=== PATIENT | male | born 1945 | race Caucasian/White ===

== ENCOUNTER 2020-03-11 08:47 | Day surgery (SDC) | payer MEDICARE ==
[2020-03-11] MEDS ORDERED: Propofol 200 MG/20 ML SDV IV ONE (08:48)
[2020-03-11] MEDS ORDERED: hydrALAZINE 20 MG/ML SDV IV ONE (08:48)
[2020-03-11] MEDS ORDERED: Midazolam 1 MG/ML 2 ML SDV IV ONE (08:48)
[2020-03-11] MEDS ORDERED: Sodium Chloride 0.9% 10 ML Syringe FLUSH PRN (09:00)
[2020-03-11] MEDS: Lactated Ringers 1,000 ML IV SCH (09:30)
--- NOTE | 2020-03-11 11:37 | PCM.OPNOTE ---
- General Post-Op/Procedure Note Date of Surgery/Procedure: 03/11/20 Operative Procedure(s): c scope with hot loop and cold forcep biopsy Findings: transverse colon x3 descending colon x2 sigmoid colon x5 rectal polyp x12 diverticulosis Pre Op Diagnosis: + Cologuard Post-Op Diagnosis: transverse colon x3. descending colon x2. sigmoid colon x5. rectal polyp x12. diverticulosis Anesthesia Technique: MAC Primary Surgeon: Tacos Quintero Anesthesia Provider: Negra Koenig Pathology: transverse colon x3 descending colon x2 sigmoid colon x5 rectal polyp x12 Complications: None Condition: Good Free Text/Narrative:: see dictation #[id number]
[2020-03-11 12:55] VITALS: BP 156/72; PULSE 54
--- NOTE | 2020-03-11 17:10 | OR ---
DATE OF OPERATION: 03/11/2020 SURGEON: Tacos Quintero MD PROCEDURE PERFORMED: Colonoscopy with cold forceps and hot forceps biopsy. PREOPERATIVE DIAGNOSIS: Positive Cologuard. POSTOPERATIVE DIAGNOSIS: Transverse colon polyp x3, descending colon polyps x2, sigmoid colon polyps x5, and rectal polyps x12. INDICATIONS FOR PROCEDURE: This is a 74-year-old white male who recently had a Cologuard test performed with the results coming back as being positive. He was referred for colonoscopy urgently. It was supposed to be done last week; however, he had continued to take aspirin, so we canceled it and he presents now for followup colonoscopy. DESCRIPTION OF PROCEDURE: After an excellent IV sedation was administered, digital rectal exam was performed. No marked abnormality was noted. Flexible colonoscope was inserted and advanced to the cecum. The prep was adequate. There were some areas of liquid stool with vegetable particulate matter for the most part. We were able to irrigate and get an adequate view of the mucosa. The following findings were noted: Ascending colon, unremarkable, except for some scattered diverticula. Transverse colon, 3 colonic polyps. Given their size, they were biopsied with cold forceps biopsy and submitted in 1 container. Descending colon, 2 polyps; one was biopsied with hot loop and the other was biopsied with cold forceps, submitted in 1 container. Sigmoid colon, 5 polyps, and these were biopsied with a combination of hot loop for 3 of them and cold forceps for 2 of them. The most significant number of polyps were in the rectum, where a grand total of 12 polyps were removed; 8 of them were biopsied with hot loop snare and submitted in 1 container and the remaining 4 were small enough that loop snare biopsy was not adequate and they were biopsied with cold forceps biopsy, again submitted in 1 container. It should be noted that he had scattered diverticulosis from the ascending to the sigmoid colon. The patient tolerated the procedure well, was taken to recovery in good condition. /[id number] /MODL
== END 2020-03-11 12:45 | disposition home or self-care (01) ==
LOC: FB.SDS 08:47
PROVIDERS: ATTEND Surgery
DX: D12.3 Benign neoplasm of transverse colon (principal); D12.4 Benign neoplasm of descending colon; K62.1 Rectal polyp; K57.30 Diverticulosis of large intestine without perforation or abscess without bleeding; I25.10 Atherosclerotic heart disease of native coronary artery without angina pectoris; J44.9 Chronic obstructive pulmonary disease, unspecified; E11.9 Type 2 diabetes mellitus without complications; E66.9 Obesity, unspecified; F17.210 Nicotine dependence, cigarettes, uncomplicated; Z79.899 Other long term (current) drug therapy; Z79.82 Long term (current) use of aspirin; Z79.84 Long term (current) use of oral hypoglycemic drugs; Z98.890 Other specified postprocedural states; Z68.38 Body mass index [BMI] 38.0-38.9, adult
CPT/HCPCS: 00811; 45380; 45385; 82962; 88305; J0360; J2250; J2704; J7120

== ENCOUNTER 2022-07-01 06:49 | Day surgery (SDC) | payer MEDICARE ==
[2022-07-01] MEDS ORDERED: Propofol 200 MG/20 ML SDV IV ONE (06:50)
[2022-07-01] MEDS ORDERED: Sodium Chloride 0.9% 10 ML Syringe FLUSH PRN (07:00)
[2022-07-01] MEDS: Lactated Ringers 1,000 ML IV SCH (08:09)
[2022-07-01] MEDS: Albuterol/Ipratropium 3.0-0.5 MG/3 ML Neb Soln NEB ONE (08:12)
[2022-07-01] MEDS: Simethicone Drops 40 MG/0.6 ML 30 ML Bottle PO ONE (08:26)
[2022-07-01 09:47] VITALS: BP 140/86; PULSE 66
== END 2022-07-01 09:30 | disposition home or self-care (01) ==
LOC: FB.SDS 06:49
PROVIDERS: ATTEND Surgery
DX: Z12.11 Encounter for screening for malignant neoplasm of colon (principal); D12.6 Benign neoplasm of colon, unspecified; K57.30 Diverticulosis of large intestine without perforation or abscess without bleeding; R06.2 Wheezing; I71.40 Abdominal aortic aneurysm, without rupture, unspecified; I25.10 Atherosclerotic heart disease of native coronary artery without angina pectoris; J44.9 Chronic obstructive pulmonary disease, unspecified; E11.9 Type 2 diabetes mellitus without complications; E78.5 Hyperlipidemia, unspecified; I10 Essential (primary) hypertension; F17.210 Nicotine dependence, cigarettes, uncomplicated; R09.89 Other specified symptoms and signs involving the circulatory and respiratory systems; K21.9 Gastro-esophageal reflux disease without esophagitis; Z95.1 Presence of aortocoronary bypass graft; Z86.010 Personal history of colon polyps; Z79.84 Long term (current) use of oral hypoglycemic drugs; Z79.82 Long term (current) use of aspirin; Z79.899 Other long term (current) drug therapy
CPT/HCPCS: 00812; 82947; 88305; 94640; A9270-GY; J2704; J7120; J7620

== ENCOUNTER 2023-12-07 14:50 | Emergency (ER) | payer MEDICARE ==
[2023-12-07 15:32] LABS: BASOPHILS ABSOLUTE AUTO 0.1 x10-3/uL (0.0-0.3); BASOPHILS PERCENT AUTO 1.2 % (0.3-3.8); EOSINOPHILS ABSOLUTE AUTO 0.1 x10-3/uL (0.0-0.6); EOSINOPHILS PERCENT AUTO 1.6 % (0.1-6.8); HEMATOCRIT 41.4 % (38.3-50.1); HEMOGLOBIN 13.3 g/dL (12.9-17.7); LYMPHOCYTES ABSOLUTE AUTO 1.3 x10-3/uL (0.5-4.5); LYMPHOCYTES PERCENT AUTO 18.7 % (15.8-45.3); MEAN CORPUSCULAR HEMOGLOBIN 30.4 pg (27.0-33.3); MEAN CORPUSCULAR HGB CONC 32.1 g/dL (28.7-35.3); MEAN CORPUSCULAR VOLUME 94.7 fL (80.8-98.7); MEAN PLATELET VOLUME 9.4 fL (6.7-11.0); MONOCYTES ABSOLUTE AUTO 0.7 x10-3/uL (0.0-1.2); NEUTROPHILS ABSOLUTE AUTO 4.9 x10-3/uL (1.7-6.9); NEUTROPHILS PERCENT AUTO 68.5 % (40.3-71.8); PLATELET COUNT,PLT 216 x10(3)uL (117-477); RED BLOOD CELL COUNT 4.37 x10(6)uL (3.90-5.90); RED CELL DISTRIBUTION WIDTH 17.5 % (12.4-15.0); WHITE BLOOD CELL COUNT,WBC 7.2 x10-3/uL (3.2-10.1)
[2023-12-07 15:38] LABS: BLOOD UREA NITROGEN,BUN 12 mg/dL (7-18); CALCIUM 9.1 mg/dL (8.6-10.2); CARBON DIOXIDE,CO2 31 mmol/L (21-32); CHLORIDE,CL 108 mmol/L (100-110); ESTIMATED GFR 78 mL/min (>60); GLUCOSE RANDOM 64 mg/dL (80-116); POTASSIUM,K 3.8 mmol/L (3.5-5.3); SODIUM,NA 148 mmol/L (135-145)
[2023-12-07 15:43] LABS: ALANINE AMINOTRANSFERASE,ALT 14 U/L (12-36); ALBUMIN 3.6 g/dL (3.2-4.6); ALKALINE PHOSPHATASE 72 IU/L (56-112); ASPARTATE AMNIOTRANSFERASE,AST 17 IU/L (5-25); BILIRUBIN TOTAL 0.3 mg/dL (0.1-1.3); PROTEIN TOTAL,TP 7.4 g/dL (6.0-8.0)
[2023-12-07 15:45] VITALS: BP 130/64; PULSE 70
[2023-12-07 15:53] LABS: TROPONIN I 103.9 pg/mL (4.0-60.3)
[2023-12-07] MEDS: Furosemide 40 MG/4 ML VIAL IVPUSH ONE (16:41)
[2023-12-07] MEDS: Iopamidol 755 Mg/ML 100 ML Bottle IV SCH (16:47)
[2023-12-07 18:23] LABS: BILIRUBIN,URINE NEGATIVE (NEGATIVE); GLUCOSE,URINE NORMAL (NORMAL); KETONES,URINE NEGATIVE (NEGATIVE); LEUKOCYTE ESTERASE,URINE NEGATIVE (NEGATIVE); NITRITE,URINE NEGATIVE (NEGATIVE); OCCULT BLOOD,URINE NEGATIVE (NEGATIVE); PROTEIN,URINE NEGATIVE (NEGATIVE); UROBILINOGEN,URINE NORMAL (NEGATIVE)
[2023-12-07 18:38] LABS: APPEARANCE,URINE CLEAR (CLEAR); BACTERIA,URINE FEW (NS); COLOR,URINE YELLOW (YELLOW); RBC,URINE 0-5 (0-5); SQUAMOUS EPITHELIAL CELLS,UR FEW (NS,R,O); WBC,URINE 0-5 (0-5)
== END 2023-12-07 20:00 | disposition other institution (70) ==
LOC: FB.ED 14:50
DX: I21.4 Non-ST elevation (NSTEMI) myocardial infarction (principal); J81.1 Chronic pulmonary edema; I10 Essential (primary) hypertension; I25.10 Atherosclerotic heart disease of native coronary artery without angina pectoris; E78.00 Pure hypercholesterolemia, unspecified; I25.2 Old myocardial infarction; J44.9 Chronic obstructive pulmonary disease, unspecified; E11.9 Type 2 diabetes mellitus without complications; E66.9 Obesity, unspecified; Z95.5 Presence of coronary angioplasty implant and graft; Z95.1 Presence of aortocoronary bypass graft; Z79.899 Other long term (current) drug therapy; Z79.84 Long term (current) use of oral hypoglycemic drugs; Z79.82 Long term (current) use of aspirin; Z68.41 Body mass index [BMI] 40.0-44.9, adult
CPT/HCPCS: 36415; 71045; 71275; 73030; 80053; 81001; 83880; 84484; 85025; 85379; 86140; 93005; 96374; 99285; J1940; Q9967